=== PATIENT | male | born 1995 | race Caucasian/White ===

== ENCOUNTER 2024-08-15 14:01 | Emergency (ER) | payer SELFPAY ==
[~2024-08-15] VITALS: Ht 180.3 cm; Wt 72.7 kg
[2024-08-15 14:03] VITALS: BP 118/66; PULSE 88; RESP 18; TEMP 98.8; O2SAT 99
== END 2024-08-15 16:30 | disposition left against medical advice (07) ==
LOC: EMS 14:01
DX: R11.2 Nausea with vomiting, unspecified (principal); R19.7 Diarrhea, unspecified; Z53.21 Procedure and treatment not carried out due to patient leaving prior to being seen by health care provider